=== PATIENT | female | born 1980 | race Caucasian/White ===

== ENCOUNTER 2017-11-20 10:28 | Day surgery (SDC) | payer OTHER, MEDICAID ==
[2017-11-20] MEDS: NS 1,000 ML IV (12:09)
[2017-11-20] MEDS ORDERED: LIDOCAINE 2% INJ 100 MG/5 ML SDV (FOR ANES.) As Ordered (12:56)
[2017-11-20] MEDS ORDERED: PROPOFOL 200 MG/20 ML VIAL As Ordered ×2 (12:56→13:02)
== END 2017-11-20 13:50 | disposition home or self-care (01) ==
LOC: M OPP 10:28
DX: Z12.11 Encounter for screening for malignant neoplasm of colon (principal); D12.6 Benign neoplasm of colon, unspecified; Z86.010 Personal history of colon polyps; E28.2 Polycystic ovarian syndrome; E66.9 Obesity, unspecified; R06.83 Snoring; J01.90 Acute sinusitis, unspecified; Z88.0 Allergy status to penicillin; Z79.899 Other long term (current) drug therapy; Z80.0 Family history of malignant neoplasm of digestive organs; Z83.71 Family history of colonic polyps; Z80.8 Family history of malignant neoplasm of other organs or systems
CPT/HCPCS: G0105

== ENCOUNTER → 2018-06-11 | Outpatient (CLI) | payer OTHER, MEDICAID ==
[2018-06-11 18:35] LABS: ANION GAP 13 MEQ/L (8-16); BLOOD UREA NITROGEN 13 MG/DL (7-18); CARBON DIOXIDE LEVEL 24 MEQ/L (21-32); CHLORIDE LEVEL 106 MEQ/L (98-107); CHOLESTEROL LEVEL 144 MG/DL (<200); CHOLESTEROL RISK RATIO 3.348 (<5); CREATININE FOR GFR 0.78 MG/DL (0.55-1.30); GLOMERULAR FILTRATION RATE > 60.0 (>60); GLUCOSE, FASTING 83 MG/DL (70-100); HDL CHOLESTEROL 43 MG/DL (>40); NON-HDL-C 101 MG/DL; POTASSIUM SERUM 4.5 MEQ/L (3.5-5.1); SODIUM LEVEL 143 MEQ/L (136-145); TRIGLYCERIDES LEVEL 438 MG/DL (<150)
[2018-06-11 20:42] LABS: ESTIMATED AVERAGE GLUCOSE 97 MG/DL (60-110)
[2018-06-11 22:59] LABS: BASO # 0.1 10^3/uL (0.0-0.2); BASO % 0.5 % (0.0-1.0); EOS # 0.5 10^3/uL (0.0-0.50); EOS % 3.7 % (0.0-3.0); HEMATOCRIT 38.2 % (36.0-47.0); HEMOGLOBIN 12.4 g/dl (12.0-15.5); IMMATURE GRANULOCYTE % 0.3 % (0-3.0); LYMPH # 3.2 10^3/uL (1.5-4.5); LYMPH % 26.1 % (24.0-44.0); MEAN CORPUSCULAR HEMOGLOBIN 28.5 pg (27.0-33.0); MEAN CORPUSCULAR HGB CONC 32.5 g/dl (32.0-36.5); MEAN CORPUSCULAR VOLUME 87.8 fl (80.0-96.0); MONO # 0.4 10^3/uL (0.0-0.8); MONO % 3.2 % (0.0-5.0); NEUTROPHILS % 66.2 % (36.0-66.0); PLATELET COUNT, AUTOMATED 260 10^3/uL (150-450); RED BLOOD COUNT 4.35 10^6/uL (4.00-5.40); RED CELL DISTRIBUTION WIDTH 12.8 % (11.5-14.5); WHITE BLOOD COUNT 12.2 10^3/uL (4.0-10.0)
== END ==
LOC: M SMT 11:40
DX: E28.2 Polycystic ovarian syndrome (principal); N92.5 Other specified irregular menstruation
CPT/HCPCS: 84443

== ENCOUNTER → 2018-09-30 | Outpatient (CLI) | payer OTHER, MEDICAID ==
[~2018-09-30] MED LIST: CONT1TAB; DOXY-350 PO; METF10004; TRINTAB PO
--- NOTE | 2018-09-30 14:55 | REP ---
MAXILLOFACIAL CT STUDY WITHOUT CONTRAST: HISTORY: Chronic maxillary sinusitis. No comparison imaging. FINDINGS: There is a 1 cm mucous retention cyst in the floor of the left maxillary sinus. Maxillary sinuses are otherwise clear. Ethmoidal and sphenoid aeration is normal. Mastoid aeration is normal and symmetric. The frontal sinuses are small but clear. The bony nasal septum is midline. Nasal turbinate soft tissues are unremarkable. No discernible osteomeatal complex disease. No intraorbital abnormality is seen. The visualized intracranial structures are unremarkable. Deep facial soft tissues are intact. IMPRESSION: Mucous retention cyst floor of the left maxillary sinus. Otherwise negative maxillofacial CT study. Electronically Signed by Vish Ugarte MD 09/30/2018 03:13 P
== END ==
LOC: M RAD 13:08
PROVIDERS: ATTEND Otolaryngology
DX: J34.1 Cyst and mucocele of nose and nasal sinus (principal); J32.0 Chronic maxillary sinusitis